=== PATIENT | female | born 1985 | race American Indian/Alaskan Native ===

== ENCOUNTER 2017-10-25 13:41 | Emergency (ER) | payer OTHER ==
[2017-10-25 13:53] VITALS: BP 109/61
[2017-10-25] MEDS ORDERED: ZOFRAN IV ONE (14:02)
[2017-10-25] MEDS ORDERED: SUBLIMAZE IV ONE (14:02)
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
[2017-10-25] MEDS ORDERED: TORADOL IV ONE (15:59)
[2017-10-25] MEDS ORDERED: DILAUDID IV ONE (15:59)
== END 2017-10-25 16:38 | disposition home or self-care (01) ==
LOC: ED 13:41
DX: S16.1XXA Strain of muscle, fascia and tendon at neck level, initial encounter (principal); S40.011A Contusion of right shoulder, initial encounter; S09.90XA Unspecified injury of head, initial encounter; M25.512 Pain in left shoulder; V49.40XA Driver injured in collision with unspecified motor vehicles in traffic accident, initial encounter; Y93.89 Activity, other specified; Y92.410 Unspecified street and highway as the place of occurrence of the external cause; Y99.8 Other external cause status
CPT/HCPCS: 70450; 72125; 73030; 96374; 96375; 99285; J1170; J1885; J2405; J3010